=== PATIENT | female | born 1980 | race Caucasian/White ===

== ENCOUNTER → 2018-02-05 | Outpatient (CLI) | payer BC ==
--- NOTE | 2018-02-05 09:53 | RADIOLOGY IMAGING REPORT ---
FACILITY: [facility] - [place] PATIENT NAME: Wanda Park : 1980 MR: [id number] V: [id number] EXAM DATE: ORDERING PHYSICIAN: RUBI GUILLAUME TECHNOLOGIST: Location: [facility] - [place] Patient: Wanda Park : 1980 Visit/Account:[id number] Date of Sevice: 02/05/2018 Exam type: LUMBAR SPINE 2 OR 3 VIEW History: Low back pain for a month, no injury Comparison: None. Findings: There are five nonrib-bearing lumbar-type vertebral bodies present. There is no evidence of acute fr acture or subluxation. There are very mild degenerative changes of the facet joints bilaterally at L 5-S1 where there is also mild disc space narrowing IMPRESSION: 1. Very mild spondylotic changes L5-S1 Report Dictated By: Dulce Ngo MD at 02/05/2018 9:48 AM Report E-Signed By: Dulce Ngo MD at 02/05/2018 9:50 AM WSN:STACEY
== END ==
LOC: RAD 07:36
PROVIDERS: ATTEND Chiropractor
DX: M45.5 Ankylosing spondylitis of thoracolumbar region (principal)
CPT/HCPCS: 72100

== ENCOUNTER → 2019-01-04 | Outpatient (REF) | payer BC ==
[2019-01-04 16:40] LABS: PLATELET COUNT, AUTOMATED 244 K/uL (150-450)
== END ==
PROVIDERS: ATTEND Family Medicine
DX: R50.9 Fever, unspecified (principal)
CPT/HCPCS: 82040; 82247; 82310; 82374; 82435; 82565; 82947; 84075; 84132; 84155; 84295; 84450; 84460; 84520; 85025